=== PATIENT | male | born 1995 | race Caucasian/White ===

== ENCOUNTER 2021-10-29 19:28 | Outpatient (CLI) | payer OTHER, SELFPAY ==
[2021-10-29 21:41] LABS: Albumin* 4.9 g/dL (3.3-5.0); Chloride* 100 mmol/L (96-114)
[2021-10-29 21:42] LABS: Potassium* 3.9 mmol/L (3.6-5.1); Sodium* 139 mmol/L (135-149)
[2021-10-29 21:44] LABS: Aspartate Amino Transferase* 33 U/L (12-35); Bilirubin Total* 0.7 mg/dL (0.1-1.5); Carbon Dioxide* 27 mmol/L (20-32); Creatinine* 0.8 mg/dL (0.5-1.5); Estimated Glomerular Filt Rate 124 ml/min; Total Protein* 8.2 g/dL (6.0-8.3)
[2021-10-29 21:45] LABS: Alanine Aminotransferase* 29 U/L (4-50); Alkaline Phosphatase* 58 U/L (40-150); Blood Urea Nitrogen* 14 mg/dL (5-24); Calcium* 9.9 mg/dL (8.4-10.6); Glucose* 107 mg/dL (60-115)
[2021-10-29 22:24] LABS: HIV 1/2/P24 Combo Screen* Negative (Negative)
[2021-10-29 22:33] LABS: Hepatitis C Virus Antibody* Negative (Negative)
[2021-10-29 23:14] LABS: Chlamydia DNA Amplified* NOT DETECTED (No Detected); GC DNA Amplified* NOT DETECTED (No Detected)
[2021-10-30 19:02] LABS: Hepatitis B Surface Antigen* Negative (Negative)
[2021-10-31 16:44] LABS: Rapid Plasma Reagin (RPR) Non Reactive (Non Reactive)
== END 2021-10-29 19:29 | disposition home or self-care (01) ==
PROVIDERS: PCP Family Medicine; Visit Provider Family Medicine
DX: Z00.00 Encounter for general adult medical examination without abnormal findings (principal); Z11.3 Encounter for screening for infections with a predominantly sexual mode of transmission; Z76.89 Persons encountering health services in other specified circumstances; Z79.899 Other long term (current) drug therapy
CPT/HCPCS: 80053; 86592; 86703; 86803; 87340; 87491; 87591

== ENCOUNTER 2022-09-19 16:34 | Outpatient (CLI) | payer OTHER, SELFPAY ==
[2022-09-19 23:57] LABS: Chlamydia DNA Amplified* NOT DETECTED (No Detected); GC DNA Amplified* NOT DETECTED (No Detected)
== END 2022-09-19 16:35 | disposition home or self-care (01) ==
PROVIDERS: PCP Family Medicine; Visit Provider Family Medicine
DX: Z11.3 Encounter for screening for infections with a predominantly sexual mode of transmission (principal)
CPT/HCPCS: 80053; 86703; 87491; 87591